=== PATIENT | female | born 1980 | race Caucasian/White ===

== ENCOUNTER 2021-05-10 22:40 | Emergency (ER) | payer BC ==
[~2021-05-10] VITALS: Ht 160 cm; Wt 138.6 kg
--- NOTE | 2021-05-10 22:50 | PHYS DOC ---
Past History Past Medical History: Cancer Past Medical History s/p Small cell lung cancer- radiation, chemo tx. General Adult HPI: HPI: ".. I think maybe I have spider bites.. Dr. Cook started me on Bactrim.. but .. I thought I should get them checked to night...." Patient is a 41 year old female who presents with above hx and complaints multiple spider bites. Largest one is in right flank which has a surrounding erythema of approximately 16 cm with central core. Other areas that she suspects are spider bites are much smaller by 1 cm central with surrounding 2 to 3 cm erythema. Patient does not see any spiders. Due to the diffuse location doubt if these are spider bites but more likely MRSA. Patient does have significant medical history of small cell cancer and is undergone radiation and chemotherapy. Patient currently under surveillance and has completed therapy. No recent travel. No specific ill contacts. No history immunosuppression. Tetanus was 2016. Review of Systems: Review of Systems: Constitutional: Denies fever or chills Eyes: Denies change in visual acuity HENT: Denies nasal congestion or sore throat Respiratory: Denies cough or shortness of breath Cardiovascular: Denies chest pain or edema GI: Denies abdominal pain, nausea, vomiting, bloody stools or diarrhea : Denies dysuria Musculoskeletal: Denies back pain or joint pain Integument: Complains of cellulitis/bug bites Neurologic: Denies headache, focal weakness or sensory changes Endocrine: Denies polyuria or polydipsia Lymphatic: Denies swollen glands Psychiatric: Denies depression or anxiety Family History: Family History: Noncontributory to presentation Current Medications: Current Meds: See nursing for home meds Allergies: Allergies: Allergic to hydromorphone Physical Exam: PE: Constitutional: , no acute distress, non-toxic appearance. [] HENT: Normocephalic, atraumatic, bilateral external ears normal, oropharynx moist, no oral exudates, nose normal. [] Eyes: PERRLA, EOMI, conjunctiva normal, no discharge. [] Neck: Normal range of motion, no tenderness, supple, no stridor. Scar. Cardiovascular:Heart rate regular rhythm, no murmur [] Lungs & Thorax: Bilateral breath sounds equal at apex auscultation [] Abdomen: Bowel sounds normal, soft, no tenderness, no masses, no pulsatile masses. Obese. Skin: Warm, dry, no erythema, no rash. Scattered areas of cellulitis. Back: No tenderness, no CVA tenderness. [] Extremities: No tenderness, no cyanosis, no clubbing, ROM intact, no edema. [] Neurologic: Alert and oriented X 3, normal motor function, normal sensory function, no focal deficits noted. [] Psychologic: Affect anxious, judgement normal, mood normal. [] EKG: EKG: [] Radiology/Procedures: Radiology/Procedures: [] Heart Score: C/O Chest Pain: N/A Risk Factors: Risk Factors: DM, Current or recent (<one month) smoker, HTN, HLP, family history of CAD, obesity. Risk Scores: Score 0 - 3: 2.5% MACE over next 6 weeks - Discharge Home Score 4 - 6: 20.3% MACE over next 6 weeks - Admit for Clinical Observation Score 7 - 10: 72.7% MACE over next 6 weeks - Early Invasive Strategies Course & Med Decision Making: Course & Med Decision Making Pertinent Labs and Imaging studies reviewed. (See chart for details) Continue the warm compresses of salt water and/or Epson salts 4 times a day. Afterwards massage areas with Polysporin. Continue Bactrim as directed. Follow-up primary care. Return if any concerns. Impression: 1. Cellulitis [] Dragalicia Disclaimer: Yoel Disclaimer: This electronic medical record was generated, in whole or in part, using a voice recognition dictation system. Departure Departure: Referrals: THOMAS COLES (PCP) Yoel Disclaimer This chart was dictated in whole or in part using Voice Recognition software in a busy, high-work load, and often noisy Emergency Department environment. It may contain unintended and wholly unrecognized errors or omissions. KURTIS TORRES MD May 10, 2021 22:50
[2021-05-10 23:03] VITALS: BP 147/97
== END 2021-05-10 23:12 | disposition home health service (06) ==
LOC: ER 22:40
DX: L03.311 Cellulitis of abdominal wall (principal)
CPT/HCPCS: 99281